=== PATIENT | female | born 1940 | race Caucasian/White ===

== ENCOUNTER 2017-11-06 07:56 | Day surgery (SDC) | payer OTHER, BC ==
[~2017-11-06] VITALS: Ht 157.5 cm; Wt 103.0 kg
[~2017-11-06 07:56] MED LIST: BASAGLAR K100 UNIT/1 SC; FENOFIBRATE160 M1 PO; FLONASE16 G1 BOTH NARES; GLUCOTROL10 MG PO; LO-DOSE ASPIRIN81 M2 PO; LOPRESSOR50 MG PO; NORVASC5 MG PO; OMEPRAZOLE40 M1 PO; ROXICODONE5 MG PO; TOFRANIL50 MG PO; TYLENOL EXTRA500 MG PO; VENTOLIN HFA18 GM IH; XANAX1 MG PO; ZOCOR80 MG PO; ZYRTEC10 M3 PO
[2017-11-06 08:56] VITALS: BP 138/95
[2017-11-06 08:58] LABS: GLUCOSE 48 mg/dL (70-99)
[2017-11-06 13:37] VITALS: BP 143/74
[2017-11-06 14:53] VITALS: BP 143/80
== END 2017-11-06 15:00 | disposition home or self-care (01) ==
LOC: SDC 07:56
PROVIDERS: Anesthesiology; Neurological Surgery
PROC: 0PB43ZX Excision of Thoracic Vertebra, Percutaneous Approach, Diagnostic (ICD-10-PCS; principal; 2017-11-06)
PROC: 0PS43ZZ Reposition Thoracic Vertebra, Percutaneous Approach (ICD-10-PCS; principal; 2017-11-06)
PROC: 0PU43JZ Supplement Thoracic Vertebra with Synthetic Substitute, Percutaneous Approach (ICD-10-PCS; principal; 2017-11-06)
DX: S22.089A Unspecified fracture of T11-T12 vertebra, initial encounter for closed fracture (principal); I10 Essential (primary) hypertension; E11.9 Type 2 diabetes mellitus without complications; F41.9 Anxiety disorder, unspecified; Z96.653 Presence of artificial knee joint, bilateral; Z90.49 Acquired absence of other specified parts of digestive tract; Z90.711 Acquired absence of uterus with remaining cervical stump; Z79.4 Long term (current) use of insulin; Z79.82 Long term (current) use of aspirin; Z68.41 Body mass index [BMI] 40.0-44.9, adult
CPT/HCPCS: 82948; 84999; 88305; 88311; C1713; J0131; J0330; J0690; J1100; J1170; J1200; J2405; J2710; J3010; J7120; J7643

== ENCOUNTER 2017-11-12 16:19 | Observation (INO) | payer OTHER, BC ==
[~2017-11-12] VITALS: Ht 157.5 cm; Wt 93.5 kg
[2017-11-12 17:25] LABS: BASOPHIL (%) 0.2 % (0-1); EOSINOPHIL COUNT 0.1 K/uL (0-0.3); HEMATOCRIT 39.3 % (36.0-46.0); HEMOGLOBIN 12.8 G/DL (11.9-15.5); IMMATURE GRANULOCYTE (%) 0.6 % (0.0-0.7); LYMPHOCYTE (%) 12.9 % (15-42); LYMPHOCYTE COUNT 1.3 K/uL (1.0-2.8); MCH 30.8 PG (29.0-34.0); MCHC 32.6 G/DL (30.0-36.0); MCV 94.5 FL (83-99); MONOCYTE (%) 3.8 % (3-12); MONOCYTE COUNT 0.4 K/uL (0-0.8); NEUTROPHIL (%) 81.5 % (45-76); NEUTROPHIL COUNT 8.1 K/uL (1.8-6.4); PLATELET COUNT 225 K/uL (156-360); RBC DIS.WIDTH-CV 11.7 % (11.8-14.6); RBC DIS.WIDTH-SD 40.4 % (39-53); RED BLOOD COUNT 4.16 M/uL (3.80-5.20); WHITE BLOOD COUNT 9.9 K/uL (4.1-10.2)
[2017-11-12 17:36] LABS: ALBUMIN 3.5 g/dL (3.2-4.8)
[2017-11-12 17:37] LABS: CHLORIDE 104 mEq/L (99-109); POTASSIUM 4.1 mEq/L (3.7-5.4); SODIUM 139 mEq/L (136-147)
[2017-11-12 17:39] LABS: GLUCOSE 72 mg/dL (70-99); TOTAL PROTEIN 6.3 g/dL (6.4-8.3)
[2017-11-12 17:40] LABS: APPEARANCE CLEAR ((CLEAR)); BILIRUBIN NEGATIVE; BLOOD SMALL; COLOR YELLOW ((YELLOW)); GLUCOSE (STRIP) NEGATIVE; KETONES NEGATIVE; LEUKOCYTES MODERATE; NITRITE NEGATIVE; PROTEIN (STRIP) 30; SPECIFIC GRAVITY 1.012 (1.000-1.030); UROBILINOGEN 0.2 MG/DL (0.2-1.0)
[2017-11-12 17:41] LABS: TOTAL BILIRUBIN 0.4 mg/dL (0.0-1.0)
[2017-11-12 17:42] LABS: ALKALINE PHOSPHATASE 159 IU/L (3-129); GFR ESTIMATE (CALCULATED) 57 mL/min/
[2017-11-12 17:44] LABS: AST (GOT) 39 IU/L (2-34); UREA NITROGEN (BUN) 15 mg/dL (9-23)
[2017-11-12 17:45] LABS: ALT (GPT) 33 IU/L (3-49)
[2017-11-12 17:52] LABS: BACTERIA RARE /HPF; CALCIUM OXALATE CRYSTALS 2+ /HPF; EPITHELIAL CELLS 1+ /HPF; MUCUS TRACE /LPF; RED BLOOD CELLS 0-5 /HPF (0-5); UCUL ADDED? YES; WHITE BLOOD CELLS TNTC /HPF (0-5)
[2017-11-12] MEDS ORDERED: HYDROCODON-ACE1 EAC8 PO (18:39)
[2017-11-12] MEDS ORDERED: LOTRISONE15 GM TP (18:39)
[2017-11-12 21:35] LABS: THYROTROPIN (TSH) 1.1 MIU/L (0.4-5.5)
[2017-11-12 22:29] VITALS: BP 140/65
[2017-11-13 03:58] VITALS: BP 169/81
[2017-11-13 05:25] LABS: HEMATOCRIT 38.6 % (36.0-46.0); HEMOGLOBIN 12.3 G/DL (11.9-15.5); MCH 29.5 PG (29.0-34.0); MCHC 31.9 G/DL (30.0-36.0); MCV 92.6 FL (83-99); PLATELET COUNT 245 K/uL (156-360); RBC DIS.WIDTH-CV 11.7 % (11.8-14.6); RBC DIS.WIDTH-SD 39.5 % (39-53); RED BLOOD COUNT 4.17 M/uL (3.80-5.20); WHITE BLOOD COUNT 8.2 K/uL (4.1-10.2)
[2017-11-13 05:53] LABS: CHLORIDE 106 MEQ/L (99-109); GFR ESTIMATE (CALCULATED) 57 mL/min/; POTASSIUM 4.1 MEQ/L (3.7-5.4); SODIUM 139 MEQ/L (136-147); UREA NITROGEN (BUN) 13 mg/dL (9-23)
[2017-11-13 06:16] LABS: GLUCOSE 107 mg/dL (70-99)
[2017-11-13 09:00] VITALS: BP 150/67
[2017-11-13 11:14] LABS: HEMOGLOBIN A1c (GLYCOHEMOGLOB) 5.7 % (Below 5.7)
[2017-11-13 11:51] VITALS: BP 207/88
[2017-11-13 12:30] VITALS: BP 201/86
[2017-11-13 12:37] LABS: URIC ACID 3.1 mg/dL (3.1-9.2)
[2017-11-13] MEDS ORDERED: GLUCOTROL10 MG PO (13:39)
[2017-11-13] MEDS ORDERED: KEFLEX500 MG PO (13:39)
[2017-11-13 14:11] VITALS: BP 190/75
[2017-11-13 15:52] VITALS: BP 150/65
== END 2017-11-13 16:20 | disposition home or self-care (01) ==
LOC: EME 16:19 → 4SOUTH 19:37 → EDOF 19:37 → ENRESERV 20:24 → 4SOUTH 22:02
PROVIDERS: Emergency Medicine; Hospitalist
DX: E11.649 Type 2 diabetes mellitus with hypoglycemia without coma (principal); N39.0 Urinary tract infection, site not specified; R60.0 Localized edema; M79.672 Pain in left foot; Z79.4 Long term (current) use of insulin; I10 Essential (primary) hypertension; F32.9 Major depressive disorder, single episode, unspecified; Z98.890 Other specified postprocedural states; R63.4 Abnormal weight loss; E78.5 Hyperlipidemia, unspecified; Z90.49 Acquired absence of other specified parts of digestive tract; Z96.653 Presence of artificial knee joint, bilateral; Z88.5 Allergy status to narcotic agent
CPT/HCPCS: 73630; 80048; 80053; 81003; 82948; 83036; 83605; 84443; 84550; 85025; 85027; 87040; 87077; 87086; 87186; 93971; 94799; 99281; 99285; G0378; J0295; J0360; J0696; J1644; J7030; J7050